=== PATIENT | female | born 1960 | race Caucasian/White ===

== ENCOUNTER 2019-10-26 13:14 | Observation (INO) | payer BC ==
[~2019-10-26] VITALS: Ht 160 cm; Wt 64.0 kg
[2019-10-26] MEDS ORDERED: LORazepam Inj 2mg/ml 1ml IV ONE (13:30)
--- NOTE | 2019-10-26 13:35 | Emergency Room Report ---
History of Present Illness General Chief Complaint: Dyspnea/Respdistress Source: Patient, EMS Present Illness HPI Patient presents after having rapid heart rate. She had a episode of SVT that was converted with adenosine in the field. She has been ill for several weeks. She was treated in [place] recently for an upper respiratory infection with pills (unknown). Cough and chest pain. Also drainage from R ear. She was seen with bilateral ear infections and has been confined to bed for the last 2 days. Today was the first day back at work. She was sitting at her desk and started to feel this difficulty breathing and rapid heart rate. She is taking extended release Sudafed. He heard herself wheezing earlier today also. Patient is a hlp-bftcsjr-hlrcknibz diabetic. Allergies: Coded Allergies: No Known Allergies (Unverified , 10/26/19) Patient History Past Medical History: see triage record Social History: Denies: smoking Social History Narrative lives with her daughter Reviewed Nursing Documentation: PMH: Agreed; PSxH: Agreed Nursing Documentation-PMH Hx Diabetes: Yes Physical Exam Vital Signs Date Time Temp Pulse Resp B/P (MAP) Pulse Ox O2 Delivery O2 Flow Rate FiO2 10/26/19 13:25 98.8 105 19 126/75 (92) 99 Room Air Sp02 EP Interpretation: reviewed, normal General Appearance: well appearing, no apparent distress, GCS 15, non-toxic Head: normocephalic Eyes: bilateral eye normal inspection, bilateral eye PERRL, bilateral eye EOMI ENT: normal pharynx, moist mucus membranes, other - bilat TM erythema with healing perforation R Neck: full range of motion, supple Respiratory: lungs clear, normal breath sounds Cardiovascular #1: no edema, tachycardia Cardiovascular #2: 2+ radial (R) Gastrointestinal: normal inspection, normal bowel sounds, non tender, no mass, non-distended Musculoskeletal: back normal, normal range of motion, no calf tenderness, gait/ station normal Neurologic: alert, oriented x3, grossly normal Psychiatric: mood/affect normal Skin: warm/dry Medical Decision Making Diagnostic Impression: Primary Impression: SVT (supraventricular tachycardia) Additional Impressions: Hypomagnesemia Otitis media Qualified Codes: H66.013 - Acute suppurative otitis media with spontaneous rupture of ear drum, bilateral ER Course Patient presents with an episode of SVT converted in the field with bilateral otitis media with evidence of perforation previously on the right-hand side. Differential includes acute myocardial infarction, arrhythmia, electrolyte imbalance, medication reaction, hyperventilation amongst others. Evaluation with EKG, chest x-ray and labs. Patient is placed on the nurse monitoring. EKG with normal sinus rhythm nonspecific ST-T wave changes. Chest x-ray clear. CBC unremarkable. CMP unremarkable. Troponin negative. Magnesium low. Urinalysis with ketones. Magnesium given IV. Patient somewhat improved with treatment. Evidence of OM R although no drainage at this time. Continue Amoxacillin and start Cortisporin R ear. Due to arrhythmia and low magnesium patient admitted for observation. Discussed with patient and daughter. Admit observation telemetry Dr. Franz. Laboratory Tests Test 10/26/19 13:25 10/26/19 16:00 White Blood Count 4.7 K/UL (4.8-10.8) L Red Blood Count 4.61 M/UL (4.20-5.40) Hemoglobin 13.9 G/DL (12.0-16.0) Hematocrit 39.8 % (37.0-47.0) Mean Corpuscular Volume 86 FL (80-99) Mean Corpuscular Hemoglobin 30.2 PG (27.0-31.0) Mean Corpuscular Hemoglobin Concent 34.9 G/DL (32.0-36.0) Red Cell Distribution Width 10.9 % (11.6-14.8) L Platelet Count 198 K/UL (150-450) Mean Platelet Volume 4.8 FL (6.5-10.1) L Neutrophils (%) (Auto) 75.8 % (45.0-75.0) H Lymphocytes (%) (Auto) 13.3 % (20.0-45.0) L Monocytes (%) (Auto) 9.2 % (1.0-10.0) Eosinophils (%) (Auto) 0.8 % (0.0-3.0) Basophils (%) (Auto) 0.9 % (0.0-2.0) Prothrombin Time 10.7 SEC (9.30-11.50) Prothrombin Time INR 1.0 (0.9-1.1) PTT 26 SEC (23-33) Sodium Level 136 MMOL/L (136-145) Potassium Level 3.7 MMOL/L (3.5-5.1) Chloride Level 96 MMOL/L (98-107) L Carbon Dioxide Level 22 MMOL/L (21-32) Anion Gap 18 mmol/L (5-15) H Blood Urea Nitrogen 22 mg/dL (7-18) H Creatinine 1.0 MG/DL (0.55-1.30) Estimate Glomerular Filtration Rate 56.4 mL/min (>60) Glucose Level 287 MG/DL (74-106) H Calcium Level 9.6 MG/DL (8.5-10.1) Magnesium Level 1.3 MG/DL (1.8-2.4) L Total Bilirubin 0.5 MG/DL (0.2-1.0) Aspartate Amino Transferase (AST) 23 U/L (15-37) Alanine Aminotransferase (ALT) 32 U/L (12-78) Alkaline Phosphatase 69 U/L (46-116) Total Creatine Kinase 38 U/L (26-308) Troponin I 0.015 ng/mL (0.000-0.056) Pro-B-Type Natriuretic Peptide 184 pg/mL (0-125) H Total Protein 7.4 G/DL (6.4-8.2) Albumin 3.6 G/DL (3.4-5.0) Globulin 3.8 g/dL Albumin/Globulin Ratio 0.9 (1.0-2.7) L Lipase 66 U/L (73-393) L Thyroid Stimulating Hormone (TSH) 1.412 uiU/mL (0.358-3.740) Urine Color Pale yellow Urine Appearance Clear Urine pH 6 (4.5-8.0) Urine Specific [place] 1.010 (1.005-1.035) Urine Protein Negative (NEGATIVE) Urine Glucose (UA) 3+ (NEGATIVE) H Urine Ketones 4+ (NEGATIVE) H Urine Blood Negative (NEGATIVE) Urine Nitrite Negative (NEGATIVE) Urine Bilirubin Negative (NEGATIVE) Urine Urobilinogen Normal MG/DL (0.0-1.0) Urine Leukocyte Esterase Negative (NEGATIVE) Microbiology Date/Time Source Procedure Growth Status 10/26/19 14:45 Nasal Nares - Final Complete 10/26/19 14:45 Nasal Nares - Final Complete EKG Diagnostic Results Rate: normal Rhythm: NSR ST Segments: no acute changes Rhythm Strip Diag. Results EP Interpretation: yes Rhythm: no PVC's, no ectopy, other - ST Chest X-Ray Diagnostic Results Chest X-Ray Diagnostic Results : Chest X-Ray Ordered: Yes # of Views/Limited/Complete: 1 View Indication: Shortness of Breath EP Interpretation: Yes Interpretation: no consolidation, no effusion, no pneumothorax Impression: No acute disease Electronically Signed by: Electronically signed by Vj Centeno MD Last Vital Signs Date Time Temp Pulse Resp B/P (MAP) Pulse Ox O2 Delivery O2 Flow Rate FiO2 10/26/19 21:45 78 15 96 Room Air 21 10/26/19 20:00 97.7 125/56 (79) Status: improved Disposition: PLACE IN OBSERVATION Condition: Serious Vj Centeno MD Oct 26, 2019 13:35
[2019-10-26 13:45] VITALS: BP 126/75
--- NOTE | 2019-10-26 13:45 | NUR ---
ED Nurse Note: PT BROUGHT IN BY AMBULANCE FROM WORK DUE TO SOB/PALPITATIONS. EMS REPORTED THAT PT WAS HAVING SVT WITH HR OF 190 EN ROUTE. ADENOSINE 6MG GIVEN IN THE FIELD. HR WENT DOWN TO 120. AAO X4, AMBULATORY WITH UNLABORED BREATHING. PT CAME IN CALM AND COOPERATIVE. DENIES CP OR SOB UPON ARRIVAL.
--- NOTE | 2019-10-26 14:00 | NUR ---
ED Nurse Note: COLLECTED BLOOD THEN SENT.
--- NOTE | 2019-10-26 14:14 | Diagnostic Imaging Report ---
Indication: Dyspnea Technique: One view of the chest Comparison: none Findings: Lungs and pleural spaces are clear. Heart size is normal. Impression: No acute process
[2019-10-26 14:19] LABS: BASOPHILS % (AUTO) 0.9 % (0.0-2.0); EOSINOPHILS % (AUTO) 0.8 % (0.0-3.0); HEMATOCRIT 39.8 % (37.0-47.0); HEMOGLOBIN 13.9 G/DL (12.0-16.0); LYMPHOCYTES % (AUTO) 13.3 % (20.0-45.0); MEAN CORPUSCULAR VOLUME 86 FL (80-99); MONOCYTES % (AUTO) 9.2 % (1.0-10.0); NEUTROPHILS % (AUTO) 75.8 % (45.0-75.0); PLATELET COUNT 198 K/UL (150-450); RED BLOOD COUNT 4.61 M/UL (4.20-5.40); RED CELL DISTRIBUTION WIDTH 10.9 % (11.6-14.8); WHITE BLOOD COUNT 4.7 K/UL (4.8-10.8)
[2019-10-26 14:26] LABS: ANION GAP 18 mmol/L (5-15); BLOOD UREA NITROGEN 22 mg/dL (7-18); CALCIUM 9.6 MG/DL (8.5-10.1); CARBON DIOXIDE 22 MMOL/L (21-32); CHLORIDE 96 MMOL/L (98-107); POTASSIUM 3.7 MMOL/L (3.5-5.1); SODIUM 136 MMOL/L (136-145)
[2019-10-26 14:38] LABS: ALANINE AMINOTRANSFERASE 32 U/L (12-78); ALBUMIN 3.6 G/DL (3.4-5.0); ALBUMIN/GLOBULIN RATIO 0.9 (1.0-2.7); ALKALINE PHOSPHATASE 69 U/L (46-116); ASPARTATE AMINO TRANSFERASE 23 U/L (15-37); BILIRUBIN,TOTAL 0.5 MG/DL (0.2-1.0); CREATINE KINASE 38 U/L (26-308)
--- NOTE | 2019-10-26 14:47 | NUR ---
ED Nurse Note: FLU SWAB SENT.
[2019-10-26 15:40] VITALS: BP 132/70
--- NOTE | 2019-10-26 16:00 | NUR ---
Note sophia in EDM - 10/26/19 at 1620 by DINO ED Nurse Note: PT REPORTS LEFT EAR DRAINAGE ABND HARD OF HEARING.
--- NOTE | 2019-10-26 16:01 | NUR ---
ED Nurse Note: PT REPORTS RIGHT EAR DRAINAGE ABND HARD OF HEARING.
[2019-10-26] MEDS ORDERED: Cortisporin OTIC Susp 10ml RIGHT EAR ONE (16:15)
[2019-10-26] MEDS ORDERED: Nitroglycerin Subl 0.4mg tab SL PRN (16:15)
[2019-10-26] MEDS ORDERED: LORazepam Inj 2mg/ml 1ml IV PRN (16:15)
[2019-10-26] MEDS ORDERED: Albuterol/Ipratropium 3ml neb HHN PRN (16:15)
[2019-10-26] MEDS ORDERED: Morphine Sulfate 2mg/ml Inj(IV/IM USE ONLY) IVP PRN (16:15)
[2019-10-26] MEDS ORDERED: Miralax 17gm pkt ORAL PRN (16:15)
[2019-10-26] MEDS ORDERED: Mylanta II UD 30ml ORAL PRN (16:15)
--- NOTE | 2019-10-26 16:16 | NUR ---
ED Nurse Note: TELEPHONE REPORT GIVEN TO MIREYA MILAN
--- NOTE | 2019-10-26 16:30 | NUR ---
NURSE NOTES: Patient transferred from ED via gurney, Alert and oriented x4, On room air, No acute distress/SOB noted. Able to make needs known. Daughter at bedside. quality assurance monitor final engaged, reading sinus rhythm on the monitor at this time. IV on Left AC patent, no bleeding or infiltration noted. Belonging check done with transferring nurse. Bed in low position and locked, Call light within reach. Encouraged to use call light when needed. Will continue plan of care.
[2019-10-26 17:06] LABS: APPEARANCE,URINE CLEAR; BILIRUBIN, URINE NEGATIVE (NEGATIVE); COLOR,URINE PALE YELLOW; GLUCOSE, URINE (UA) 3+ (NEGATIVE); KETONES,URINE 4+ (NEGATIVE); LEUKOCYTE ESTERASE ,URINE NEGATIVE (NEGATIVE); NITRITE,URINE NEGATIVE (NEGATIVE); PH,URINE 6 (4.5-8.0); PROTEIN,URINE NEGATIVE (NEGATIVE); UROBILINOGEN,URINE NORMAL MG/DL (0.0-1.0)
[2019-10-26] MEDS ORDERED: AMARYL1 MG ORAL (18:58)
[2019-10-26] MEDS ORDERED: METFORMIN HCL1000 M1 ORAL (18:58)
[2019-10-26] MEDS ORDERED: VICTOZA 2-0.6 MG/0.1 PO (18:58)
[2019-10-26] MEDS ORDERED: NATURE-THROID65 M1 PO (18:58)
[2019-10-26] MEDS ORDERED: LOTENSIN20 MG ORAL (18:58)
[2019-10-26] MEDS ORDERED: JANUVIA25 MG ORAL (18:58)
--- NOTE | 2019-10-26 19:05 | NUR ---
HAND-OFF: Report given to Benitez/MIREYA. Patient is lying semi-bowman's, without distress, in stable condition. Endorsed plan of care. Addendum: 10/26/19 at 1940 by Chely Butler RN report given to Stefanie
--- NOTE | 2019-10-26 19:45 | NUR ---
NURSE NOTES: RECEIVED PATIENT RESTING IN BED, NO COMPLAINTS OF CHEST PAIN AT THIS TIME. FALL PRECAUTIONS IN PLACE: CALL LIGHT AND BEDSIDE TABLE WITHIN REACH, BED IN LOW POSITION. PLAN OF CARE REVIEWED.
[2019-10-26 20:00] VITALS: BP 125/56
[2019-10-26] MEDS ORDERED: Heparin 5000 units/ml inj SUBQ SCH (21:00)
[2019-10-27] VITALS: BP 129/69
[2019-10-27 04:00] VITALS: BP 139/75
--- NOTE | 2019-10-27 06:52 | NUR ---
NURSE NOTES: Report received from Stefanie GOMES. Pt AOX4 and able to make needs known. No c/o pain. IV intact and asymptomatic. No SOB noted. Sinus rhythm on the monitor. Will continue to plan of care.
--- NOTE | 2019-10-27 06:52 | NUR ---
HAND-OFF: Report given to Renetta TRUJILLO RN. PATIENT ASLEEP, NO SIGNS OF DISTRESS NOTED.
[2019-10-27 07:10] LABS: EOSINOPHILS % (AUTO) 2.4 % (0.0-3.0); HEMATOCRIT 35.5 % (37.0-47.0); HEMOGLOBIN 12.7 G/DL (12.0-16.0); LYMPHOCYTES % (AUTO) 19.6 % (20.0-45.0); MEAN CORPUSCULAR VOLUME 85 FL (80-99); MONOCYTES % (AUTO) 12.8 % (1.0-10.0); NEUTROPHILS % (AUTO) 64.2 % (45.0-75.0); PLATELET COUNT 215 K/UL (150-450); RED BLOOD COUNT 4.17 M/UL (4.20-5.40); RED CELL DISTRIBUTION WIDTH 10.6 % (11.6-14.8)
[2019-10-27 07:54] LABS: ALANINE AMINOTRANSFERASE 30 U/L (12-78); ALBUMIN/GLOBULIN RATIO 0.9 (1.0-2.7); ALKALINE PHOSPHATASE 57 U/L (46-116); ANION GAP 10 mmol/L (5-15); ASPARTATE AMINO TRANSFERASE 16 U/L (15-37); BILIRUBIN,TOTAL 0.4 MG/DL (0.2-1.0); BLOOD UREA NITROGEN 18 mg/dL (7-18); CALCIUM 8.7 MG/DL (8.5-10.1); CARBON DIOXIDE 25 MMOL/L (21-32); CHLORIDE 104 MMOL/L (98-107); CHOLESTEROL 171 MG/DL (< 200); CREATININE 0.5 MG/DL (0.55-1.30); HDL CHOLESTEROL 41 MG/DL (40-60); POTASSIUM 3.7 MMOL/L (3.5-5.1); SODIUM 139 MMOL/L (136-145); TRIGLYCERIDES 114 MG/DL (30-150)
[2019-10-27 08:00] VITALS: BP 136/76
--- NOTE | 2019-10-27 09:37 | NUR ---
AMA: SEE AMA FORM. Patient discharged AMA. Reinforced the patient for the reasons for staying including benefits and risks of AMA discharge, hypomagnesemia and palpitation etc. But the patient strongly wanted to discharge form tele. Dr. Sibley and Dr. Franz notified. All Devices, IV, and residential monitor removed. Per the patient, she will discharge home and she will follow up her primary physician right after discharge from Tele. The patient left the hospital with steady walking with RN supervision after she signed the belonging list and AMA form. No c/o pain and No acute distress noted.
--- NOTE | 2019-10-27 11:55 | NUR ---
*-* NO INSURANCE INFORMATION IN THE BAR UNABLE TO SEND CLINICALS OR REVIEWS *-*
--- NOTE | 2019-10-27 13:47 | Cardiology Report ---
APPROVED REPORT EKG Measurement Heart [id number] FL [id number] [id number] Normal sinus rhythm Possible Anterior infarct, age undetermined Abnormal ECG
--- NOTE | 2019-10-27 16:06 | NUR ---
CASE MANAGEMENT:REVIEW 59 YR OLD FEMALE BIBA CC: SOB. HR 190 PMH: EAR INFECTION ~ ON ANTIBIOTICS SI: ARRHYTHMIA. SVT. HYPOMAGNESIUM 98.7 105 19 126/75 99% ON RA MAG-1.3 IS: IV ADENOSINE GIVEN EN ROUTE IV ATIVAN 1L NS BOLUS X2 IV MAG SULFATE CXR : TO TELEMETRY INTERQUAL CRITERIA MET
--- NOTE | 2019-11-01 08:01 | Discharge Summary ---
Discharge Summary Discharge Summary _ DATE OF ADMISSION: 10/26/2019 DATE OF DISCHARGE: 10/27/2019 Patient left AGAINST MEDICAL ADVICE REASON FOR ADMISSION: 59 years old female with past medical history of diabetes mellitus , presented with complaint of palpitations. She had episodes of SVT and converted with adenosine in the field to sinus rhythm. Patient reported being ill for several weeks. Patient was treated in [place] recently for upper respiratory infection with pills /unknown. Patient reported cough and chest pain. Patient also reported drainage from right ear. Patient was seen for bilateral ear infection and has been confined to bed for the last 2 days. Apparently she went to work and while sitting at the desk , started to feel difficulty breathing and rapid heart rate. Patient was on extended release Sudafed. Patient also heard herself wheezing . Patient subsequently came to emergency room for evaluation. Upon evaluation patient was tachycardic with heart rate 105 , pulse oximetry was stable on room air , patient was afebrile. Laboratory work-up revealed no leukocytosis, stable hemoglobin, hematocrit and platelet count. BUN 22 , creatinine 1.0 . Magnesium 1.3. Other electrolytes stable. Glucose 287. Stable LFT. Albumin 3.6 Troponin 0.015 , pro BNP 184. EKG revealed sinus tachycardia, no acute ischemic changes. Urinalysis revealed +4 ketones ,+3 glucose, no evidence of urinary tract infection. Chest x-ray revealed no acute cardiopulmonary pathology. Clinical examination revealed bilateral tympanic membrane erythema with healing perforation on the right side. In ED patient started on magnesium replacement via IV route. Patient started on amoxicillin and Cortisporin to the right ear. Patient was admitted due to arrhythmia and low magnesium. HOSPITAL COURSE: Patient admitted to telemetry floor. Supplemental oxygen was on board as needed to keep pulse oximetry above 92%. Pulse oximetry remained stable on room air. Nebulizing treatment with bronchodilator provided. Patient remained afebrile. Telemetry demonstrated sinus rhythm, heart rate stabilized, tachycardia resolved. No further evidence of SVT. Patient completed replacement with IV magnesium. Patient was continued on amoxicillin and Cortisporin. DVT prophylaxis provided. In the morning on 10/27 patient decided to leave AGAINST MEDICAL ADVICE. The risks and consequences of signing AGAINST MEDICAL ADVICE were discussed with patient in detail. Patient verbalized understanding, nevertheless signed AMA form and left. FINAL DIAGNOSES: Supraventricular tachycardia-converted to SR after adenosine, no recurrence Hypomagnesemia-repleted Bilateral otitis media with right-sided perforation I have been assigned to dictate discharge summary for this account. I was not involved in the patient's management. Maggie Stringer NP Nov 01, 2019 08:01
--- NOTE | 2019-11-01 12:35 | Diagnostic Imaging Report ---
APPROVED REPORT CPT Code: 91803 Vascular Symptoms Comments: CVA. Doppler Spectral Velocity Analysis RightLeft RIGHT SIDE: CCA - Imaging reveals no significant plaque within the extracranial carotid arteries. The Doppler spectral flow analysis is within normal limits throughout the extracranial carotid arteries. VERTEBRAL - The vertebral artery is within normal limits. LEFT SIDE: ICA/BULB - Imaging reveals irregular, minimal plaque in carotid bulb and interna carotid arterie. CCA and ECA - Imaging reveals no significant plaque in the common carotid arterie and external carotid arteries. VERTEBRAL - The vertebral artery is patent, without evidence of stenosis or steal.
== END 2019-10-27 09:37 | disposition left against medical advice (07) ==
LOC: EDBD 13:14 → EDBEDREQ 14:02 → EMR 14:44 → INTOOBSV 15:06 → 2E 15:06 → EDBEDREQ 15:36
DX: I47.1 Supraventricular tachycardia (principal); E83.42 Hypomagnesemia; H66.013 Acute suppurative otitis media with spontaneous rupture of ear drum, bilateral; E11.9 Type 2 diabetes mellitus without complications
CPT/HCPCS: 36415; 71045; 80053; 80061; 81003; 82550; 83690; 83735; 83880; 84443; 84484; 85025; 85610; 85730; 86710; 93005; 93880; 94664; 96361; 96365; 96375; 99285; J1644; J7030; G0378